=== PATIENT | female | born 1955 | race Hispanic/Latino ===

== ENCOUNTER → 2017-08-21 | Outpatient (CLI) | payer OTHER ==
--- NOTE | 2017-08-21 16:30 | Diagnostic Imaging Report ---
TECHNIQUE: Magnetic resonance imaging of the LEFT KNEE was performed WITHOUT injected contrast. HISTORY: PAIN, MEDIAL MENISCUS DERANGEMENT COMPARISON: None available. FINDINGS: LIGAMENTS AND TENDONS: ACL: Intact PCL: Intact Collateral ligaments: Intact Iliotibial band: Unremarkable Popliteal tendon: Intact Extensor mechanism: Intact, minimal intrasubstance degeneration of the proximal patellar tendon. JOINT: Menisci: Medial: Intrasubstance degeneration most prominent near the junction of the artery and posterior horn. Complex tearing and prominent focal attenuation of the posterior root near the tibial insertion, results in mild peripheral extrusion of the body. Lateral: Intact Articular Cartilage: Medial Compartment: Low to intermediate grade erosion of the weightbearing cartilage. Lateral Compartment: No focal defect. Patellofemoral Compartment: Intermediate grade erosion at the patellar apex and adjacent medial facet. Joint Fluid: Synovitis and moderate nonspecific joint effusion. BONES: No focal or infiltrative bone marrow replacing abnormality. No acute fracture. Bone marrow edema underlying the tibial insertion of the posterior root of the medial meniscus. SOFT TISSUES: Otherwise, unremarkable. IMPRESSION: 1. Degenerative tear involving the posterior root of the medial meniscus with adjacent reactive bone marrow edema within the central aspect of the medial tibial plateau. 2. Mild medial and patellofemoral compartment osteoarthrosis. 3. Reactive synovitis with associated moderate joint effusion. Signed by: Wellington Rodriguez.O., M.M.M. on 08/21/2017 4:26 PM
== END ==
LOC: MRI 14:46
PROVIDERS: ATTEND Family Medicine
DX: M23.304 Other meniscus derangements, unspecified medial meniscus, left knee (principal)

== ENCOUNTER → 2017-09-26 | Day surgery (SDC) | payer OTHER ==
[~2017-09-26] MED LIST: CEFAZOLIN SOD 1 GM VIAL ONE; DEXAMETHASONE SOD PHOS INJ 4 MG/ML VIAL ONE; FENTANYL CITRATE/PF 100MCG/2 ML INJ ONE; LIDOCAINE HCL 2% LOCAL INJ 5 ML SDV VIAL INJ ONE; MIDAZOLAM HCL 2 MG/2 ML VIAL ONE; ONDANSETRON HCL INJ 2 MG/ML VIAL ONE; PROPOFOL IV EMULSION 10 MG/ML 20 ML VIAL ONE; SEVOFLURANE INHAL SOLN 250 ML PEN BTL ONE; TYLENOL PO
--- OUTSIDE RECORDS SUMMARY | 2017-09-26 05:58 | XMS REPORT ---
Author Author [facility] Address Unknown Phone Unavailable Care Team Providers Care Fish Bin Tender Name Role Phone STEPHANIE CERON Unavailable Unavailable Problems This patient has no known problems. Allergies, Adverse Reactions, Alerts This patient has no known allergies or adverse reactions. Medications This patient has no known medications. Results Test Description Test Time Test Comments Text Results Atomic Results Result Comments MRI KNEE LEFT WO [place] [address] Patient Name: ANTONINA NIX MR #: [id number] : 1955 Age/Sex: 62/F Req #: [id number] [facility] Physician: Ordered by: STEPHANIE CERON DO Report #: [id number] Location: MRI Room/Bed: Procedure: [id number] MRI/MRI KNEE LEFT WO Exam Date: Exam Time: REPORT STATUS: Signed TECHNIQUE: Magnetic resonance imaging of the LEFT KNEE was performed WITHOUT injected contrast. HISTORY: PAIN, MEDIAL MENISCUS DERANGEMENT COMPARISON: None available. FINDINGS: LIGAMENTS AND TENDONS: ACL: Intact PCL: Intact Collateral ligaments: Intact Iliotibial band: Unremarkable Popliteal tendon: Intact Extensor mechanism: Intact, minimal intrasubstance degeneration of the proximal patellar tendon. JOINT: Menisci: Medial: Intrasubstance degeneration most prominent near the junction of the artery and posterior horn. Complex tearing and prominent focal attenuation of the posterior root near the tibial insertion, results in mild peripheral extrusion of the body. Lateral: Intact Articular Cartilage: Medial Compartment: Low to intermediate grade erosion of the weightbearing cartilage. Lateral Compartment: No focal defect. Patellofemoral Compartment: Intermediate grade erosion at the patellar apex and adjacent medial facet. Joint Fluid: Synovitis and moderate nonspecific joint effusion. BONES: No focal or infiltrative bone marrow replacing abnormality. No acute fracture. Bone marrow edema underlying the tibial insertion of the posterior root of the medial meniscus. SOFT TISSUES: Otherwise, unremarkable. IMPRESSION: 1. Degenerative tear involving the posterior root of the medial meniscus with adjacent reactive bone marrow edema within the central aspect of the medial tibial plateau. 2. Mild medial and patellofemoral compartment osteoarthrosis. 3. Reactive synovitis with associated moderate joint effusion. Signed by: Spring RodriguezO., M.M.M. on 08/21/2017 4:26 PM Dictated By: RICKEY ISAACS DO 162 COPY TO: STEPHANIE CERON DO
--- NOTE | 2017-09-26 08:40 | Operative Report ---
DATE OF PROCEDURE: September 26, 2017 ANATOMY TEACHER: Roberto Conner PA-C The patient was brought to the operating room for induction of anesthesia. Throughout this case, my PA's assistance was necessary for retraction of soft tissue and positioning of the extremity. This allows for efficient and technically successful execution of the operation and is considered medically necessary. PREOPERATIVE DIAGNOSIS: Left knee medial meniscal tear. POSTOPERATIVE DIAGNOSES 1. Left knee medial meniscus tear. 2. Grade 2 chondromalacia of the patella. PROCEDURES 1. Left knee arthroscopy. 2. Partial medial meniscectomy. 3. Chondroplasty of patella. INDICATIONS: The patient is a 62-year-old lad who has clinic findings consistent with a medial meniscal tear in her left knee. She has failed conservative management and feels the symptoms are severely compromising her quality of life. The risks and benefits of arthroscopy have been explained. She states she understands and wishes to proceed. DESCRIPTION OF PROCEDURE: The patient was brought to the operating room and placed under general anesthetic. Her left lower extremity was prepped and draped in a sterile manner. A preoperative time out was performed. A tourniquet on the upper thigh was inflated to 300 mmHg. Standard arthroscopy portals were established. The knee was insufflated with sterile saline and systematically inspected. Immediately evident was extensive grade 2 changes of chondromalacia of the undersurface of the patella. The trochlear groove was well preserved. The medial compartment was inspected. There was a tear of the posterior horn of the medial meniscus. There were some grade 1 changes of chondromalacia of the medial femoral condyle and medial tibial plateau. The cruciate ligaments were inspected and probed. They were normal. The lateral compartment was unremarkable. The meniscus was probed on the superior and inferior surfaces, and was noted to have no evidence of a tear. Attention was returned to the medial compartment. A combination of biting forceps and mechanical shaver were used to debride the meniscus back to a stable margin. Gentle chondroplasty was performed on the medial femoral condyle and tibial plateau. Before and after photographs were taken. Attention was then turned to the patella. The undersurface of the patella was gently debrided to remove unstable fragments of cartilage. The knee was thoroughly irrigated. The arthroscopic instruments were removed and the portal incisions were closed with nylon stitches. A sterile bandage was applied. The patient was extubated and transported to the recovery room in stable condition. Job#: [id number]
== END | disposition home or self-care (01) ==
LOC: OR 05:56
PROVIDERS: ATTEND Specialist
DX: S83.232A Complex tear of medial meniscus, current injury, left knee, initial encounter (principal); M22.42 Chondromalacia patellae, left knee; X58.XXXA Exposure to other specified factors, initial encounter; Z01.810 Encounter for preprocedural cardiovascular examination; Z68.35 Body mass index [BMI] 35.0-35.9, adult
CPT/HCPCS: 29881; 93005; J0690; J1100; J2001; J2250; J2405

== ENCOUNTER → 2022-08-26 | Outpatient (CLI) | payer MEDICARE ==
[~2022-08-26] MED LIST changes: -CEFAZOLIN SOD 1 GM VIAL ONE; -DEXAMETHASONE SOD PHOS INJ 4 MG/ML VIAL ONE; -FENTANYL CITRATE/PF 100MCG/2 ML INJ ONE; -LIDOCAINE HCL 2% LOCAL INJ 5 ML SDV VIAL INJ ONE; -MIDAZOLAM HCL 2 MG/2 ML VIAL ONE; -ONDANSETRON HCL INJ 2 MG/ML VIAL ONE; -PROPOFOL IV EMULSION 10 MG/ML 20 ML VIAL ONE; -SEVOFLURANE INHAL SOLN 250 ML PEN BTL ONE
== END ==
LOC: MAMMO 08:35
PROVIDERS: ATTEND Family Medicine
DX: Z12.31 Encounter for screening mammogram for malignant neoplasm of breast (principal)
CPT/HCPCS: 77067

== ENCOUNTER → 2023-08-28 | Outpatient (REF) | payer MEDICARE, OTHER | LOC: MAMMO 09:35 | PROVIDERS: ATTEND Family Medicine | DX: Z12.31 Encounter for screening mammogram for malignant neoplasm of breast (principal) | CPT/HCPCS: 77067 ==

== ENCOUNTER → 2024-08-27 | Outpatient (REF) | payer MEDICARE, OTHER | LOC: MAMMO 08:42 | PROVIDERS: ATTEND Family Medicine | DX: Z12.31 Encounter for screening mammogram for malignant neoplasm of breast (principal) | CPT/HCPCS: 77067 ==